=== PATIENT | female | born 1970 | race Caucasian/White ===

== ENCOUNTER 2022-11-15 09:12 | Outpatient (CLI) | payer OTHER, SELFPAY | END 2022-11-15 09:13 | disposition home or self-care (01) | PROVIDERS: PCP Physician Assistant Medical; Visit Provider Physician Assistant Medical | DX: Z00.00 Encounter for general adult medical examination without abnormal findings (principal); E78.5 Hyperlipidemia, unspecified; R79.89 Other specified abnormal findings of blood chemistry | CPT/HCPCS: 80053; 80061; 84443 ==

== ENCOUNTER 2022-12-06 10:43 | Outpatient (CLI) | payer OTHER, SELFPAY ==
--- NOTE | 2022-12-06 11:00 | CRLHL7_ITS ---
For Patients: As a result of the Century Cures Act, medical imaging exams and procedure reports are released immediately into your electronic medical record. You may view this report before your referring provider. If you have questions, please contact your health care provider. INDICATION: ELEVATED LFTS COMPARISON: none TECHNIQUE: Real time haji scale imaging and color Doppler analysis was performed of the right upper quadrant. FINDINGS: The patient`s liver is of normal size and has uniform echogenicity. There is a normal appearance of the hepatic IVC and proximal abdominal aorta. There is no evidence of ascites. The gallbladder is of normal size and there is no evidence of intraluminal stones or sludge. The gallbladder wall measures 1 mm in thickness. The common bile duct is of normal size and measures 5 mm in diameter at the level of the ramesh hepatis. The pancreas appears normal. There is no evidence of a stone or hydronephrosis within the right kidney. The right kidney measures 11.4 cm in length. IMPRESSION: Normal right upper quadrant ultrasound. Dictated by Genaro Victor MD @ 12/06/2022 11:21:37 AM (Electronically Signed)
== END 2022-12-06 10:44 | disposition home or self-care (01) ==
LOC: US 10:44
PROVIDERS: PCP Physician Assistant Medical; Visit Provider Physician Assistant Medical
DX: R79.89 Other specified abnormal findings of blood chemistry (principal)
CPT/HCPCS: 76705

== ENCOUNTER 2023-04-04 12:18 | Outpatient (CLI) | payer OTHER, SELFPAY | END 2023-04-04 12:19 | disposition home or self-care (01) | LOC: NFLDREF 04-13 08:58 | PROVIDERS: PCP Physician Assistant Medical; Referring Provider Physician Assistant Medical; Visit Provider Physician Assistant Medical | DX: Z01.818 Encounter for other preprocedural examination (principal) | CPT/HCPCS: 36415 ==

== ENCOUNTER 2023-04-13 08:44 | Day surgery (SDC) | payer OTHER, SELFPAY ==
[2023-04-13] VITALS (13 sets, daily range): BP systolic 144–191; BP diastolic 84–105; PULSE 55–81; RESP 16–24; TEMP 36.1–37.1; O2SAT 95–100; BMI 26.9
[2023-04-13] MEDS: LACTATED RINGERS 1000 ML 1,000 ML 100 ML IV (08:25)
[2023-04-13] MEDS: OXYMETAZOLINE 0.05% NASAL SPRAY 2 SPRAY NOSTRIL-B (09:28)
[2023-04-13] MEDS: SODIUM CHLORIDE 0.9 % (FLUSH) 10 ML SYRINGE IVF (09:33)
[2023-04-13] MEDS: COCAINE HCL 4 % 4 ML SOLUTION NOSTRIL-B (10:27)
[2023-04-13] MEDS: AYR SALINE NASAL GEL 1 APPLIC NOSTRIL-B (10:27)
[2023-04-13] MEDS: BUPIVACAINE 0.5 %/EPI 1:200K 30 ML INJECTION (10:27)
--- NOTE | 2023-04-13 10:34 | W.ANESCHARGE ---
Anesthesia Charges Start Date/Time Anesthesia Start Date: 04/13/23 Anesthesia Start Time: 10:16 Stop Date/Time Anesthesia Stop Date: 04/13/23 Anesthesia Stop Time: 10:59
[2023-04-13] MEDS: MUPIROCIN 1 GM PACKET 1 APPLIC TOPICAL (10:42)
--- NOTE | 2023-04-13 11:00 | W.ANESCHARGE ---
Anesthesia Charges Start Date/Time Anesthesia Start Date: 04/13/23 Anesthesia Start Time: 10:16 Stop Date/Time Anesthesia Stop Date: 04/13/23 Anesthesia Stop Time: 10:59
[2023-04-13] MEDS: fentaNYL 100 MCG/2 ML inj 50 MCG IVP ×2 (11:03→11:11)
--- NOTE | 2023-04-13 11:31 | SUR.PHASEI ---
patient met discharge criteria per anesthesia
--- NOTE | 2023-04-13 12:12 | W.PM.ENTPROC ---
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 A right hemitransfixion incision was made left anterior and posterior tunnels were created. A vertical incision was made through the cartilage and a right posterior tunnel created. The posterior impacted portions of septal bone were resected a large piece was trimmed and returned to intraseptal space. The NC anterior septum was moved to midline. The hemitransfixion was closed with 2 4-0 chromic sutures A stab incision was made in the anterior left inferior turbinate a tunnel created with a [place] dissector. A conservative anterior submucous resection was performed and the Coblation was used for hemostasis and to cauterize intramurally along the inferior 10%. This was repeated on the left side in identical fashion. Remainder procedure was done with the available assistance of a 0 degree endoscope. The right middle turbinate anali was incised along its inferior aspect with a 15 blade entering the hollow portion. The incision was completed with the turbinate scissors and then a very small amount of bone was resected. The remainder of the turbinate was crushed with the Benigno forceps. This was repeated on the left side in identical fashion. The hollow portion was more superior and was entered from the medial aspect. Silastic stents were secured with 3-0 nylon and Merocel pack coated in Bactroban was placed beneath the middle turbinates on each side. The patient procedure well was taken recovery in satisfactory condition. Blood loss was less than 25 mL. Surgeon: Bogdan Magallanes MD
== END 2023-04-13 13:30 | disposition home or self-care (01) ==
LOC: OR 08:44
PROVIDERS: PCP Physician Assistant Medical; Visit Provider Otolaryngology
PROC: (CPT 31231; principal; 2023-04-13 10:15)
DX: J34.2 Deviated nasal septum (principal); J34.3 Hypertrophy of nasal turbinates; R51.9 Headache, unspecified; J34.89 Other specified disorders of nose and nasal sinuses
CPT/HCPCS: 30520; 30140; 31240; 00160; A9270; J0330; J1100; J2250; J2405; J2704; J3010; J3490; J7120

== ENCOUNTER 2023-12-26 08:26 | Outpatient (CLI) | payer OTHER, SELFPAY ==
--- NOTE | 2023-12-26 08:45 | CRLHL7_ITS ---
For Patients: As a result of the Cures Act, medical imaging exams and procedure reports are released immediately into your electronic medical record. You may view this report before your referring provider. If you have questions, please contact your health care provider. BILATERAL SCREENING MAMMOGRAM WITH COMPUTER-AIDED DETECTION AND TOMOSYNTHESIS TECHNIQUE: CC and MLO views were obtained. These mammographic images have been obtained using full-field digital technique. These mammographic images were interpreted with the benefit of computer-aided detection. Breast Tomosynthesis was used in this interpretation. COMPARISON FILM: 11/29/22, 11/21/21, 11/17/21. FINDINGS: There are scattered areas of fibroglandular density IMPRESSION: There is no radiographic evidence for malignancy. ASSESSMENT: BI-RADS Category 1: Negative RECOMMENDATION: Routine screening mammogram in 1 year. A lay language report of this examination will be provided to the patient. Genaro Victor M.D. Diagnostic Radiologist [email or web address] Transcribed: 2:54 p.[email or web address] del rosario/Dictated by: Genaro Victor MD @ 12/28/2023 12:53:00 PM (Electronically Signed)
== END 2023-12-26 08:27 | disposition home or self-care (01) ==
LOC: MAMMO 08:27
PROVIDERS: PCP Physician Assistant Medical; Visit Provider Physician Assistant Medical
DX: Z12.31 Encounter for screening mammogram for malignant neoplasm of breast (principal)
CPT/HCPCS: 77063; 77067

== ENCOUNTER 2024-12-30 16:07 | Outpatient (CLI) | payer OTHER, SELFPAY ==
--- NOTE | 2024-12-30 16:40 | CRLHL7_ITS ---
For Patients: As a result of the Century Cures Act, medical imaging exams and procedure reports are released immediately into your electronic medical record. You may view this report before your referring provider. If you have questions, please contact your health care provider. INDICATION: BILATERAL SCREENING MAMMOGRAM, ASYMPTOMATIC 54Y/F COMPARISON: Baseline TECHNIQUE: Digital mammogram in CC and MLO projections including computer-aided detection (CAD) and tomosynthesis. BREAST COMPOSITION: There are scattered areas of fibroglandular density. FINDINGS: No suspicious findings. ASSESSMENT: BI-RADS 2 Benign RECOMMENDATION: Annual screening mammogram. A lay language report of this examination will be provided to the patient. Dictated by: Genaro Victor MD @ 01/01/2025 11:51:22 (Electronically Signed)
== END 2024-12-30 16:08 | disposition home or self-care (01) ==
LOC: MAMMO 16:07
PROVIDERS: PCP Physician Assistant Medical; Visit Provider Physician Assistant Medical
DX: Z12.31 Encounter for screening mammogram for malignant neoplasm of breast (principal)
CPT/HCPCS: 77063; 77067